=== PATIENT | male | born 1960 | race Two or more races ===

== ENCOUNTER 2024-03-29 15:32 | Emergency (ER) | payer OTHER ==
[~2024-03-29] VITALS: Ht 175.3 cm; Wt 77.1 kg
== END 2024-03-29 16:20 | disposition home or self-care (01) ==
LOC: ER 15:32
DX: S91.119A Laceration without foreign body of unspecified toe without damage to nail, initial encounter (principal); X58.XXXA Exposure to other specified factors, initial encounter; Y93.11 Activity, swimming; Y92.89 Other specified places as the place of occurrence of the external cause; Y99.8 Other external cause status